=== PATIENT | male | born 1975 | race Caucasian/White ===

== ENCOUNTER 2020-05-12 18:42 | Emergency (ER) | payer OTHER, BC ==
[~2020-05-12] VITALS: Ht 182.9 cm; Wt 108.6 kg
[2020-05-12 18:46] VITALS: TEMP 98.4
[2020-05-12 19:39] VITALS: BP 130/90; PULSE 90
== END 2020-05-12 19:39 | disposition home or self-care (01) ==
LOC: COL.ER 18:42
DX: S80.02XA Contusion of left knee, initial encounter (principal); F17.210 Nicotine dependence, cigarettes, uncomplicated; W01.198A Fall on same level from slipping, tripping and stumbling with subsequent striking against other object, initial encounter; Y92.009 Unspecified place in unspecified non-institutional (private) residence as the place of occurrence of the external cause